=== PATIENT | female | born 1975 | race Two or more races ===

== ENCOUNTER 2022-07-13 10:13 | Emergency (ER) | payer MEDICAID ==
[~2022-07-13] VITALS: Ht 165.1 cm; Wt 63.5 kg
[2022-07-13] MEDS ORDERED: ONDANSETRON HCL/PF 4 MG/2 ML VIAL IVP ONE (10:30)
[2022-07-13] MEDS ORDERED: IV NS 0.9% 1,000 ML BAG IV ONE (10:30)
[2022-07-13] MEDS ORDERED: ONDANSETRON HCL/PF 4 MG/2 ML VIAL ONE (10:36)
--- NOTE | 2022-07-13 10:40 | NUR ---
Patient AOx4, able to express her concerns. C/o pain and "a couple" drops of blood with stool.
[2022-07-13 11:06] LABS: BASOPHILS % (AUTO) 0.9 % (0.0-2.0); EOSINOPHILS % (AUTO) 1.6 % (0.0-6.0); HEMATOCRIT 37 % (33-45); HEMOGLOBIN 12.4 g/dL (11.5-14.8); LYMPHOCYTES # (AUTO) 2.1 K/uL (0.8-4.8); LYMPHOCYTES % (AUTO) 39.4 % (20.0-44.0); MEAN CORPUSCULAR HGB CONC 34 g/dl (31.0-36.0); MEAN CORPUSCULAR VOLUME 89 fL (82-100); MONOCYTES # (AUTO) 0.4 K/uL (0.1-1.30); MONOCYTES % (AUTO) 6.9 % (2.0-12.0); NEUTROPHILS # (AUTO) 2.7 K/uL (1.8-8.9); NEUTROPHILS % (AUTO) 51.2 % (43.0-81.0); PLATELET COUNT (AUTO) 266 K/uL (150-450); RED BLOOD CELL COUNT(AUTO) 4.08 MIL/uL (4.0-5.2); WHITE BLOOD COUNT (AUTO) 5.3 K/uL (4.3-11.0)
[2022-07-13 11:25] LABS: CALCIUM, SERUM 8.8 mg/dL (8.5-10.1); CREATININE 0.6 mg/dL (0.6-1.3); POTASSIUM 3.7 mmol/L (3.5-5.1)
[2022-07-13 11:30] LABS: ALBUMIN 3.8 g/dL (3.4-5.0); BILIRUBIN,DIRECT 0.1 mg/dL (0.0-0.2); BILIRUBIN,TOTAL 0.5 mg/dL (0.2-1.0); TOTAL PROTEIN, SERUM 7.3 g/dL (6.4-8.2)
[2022-07-13 13:44] LABS: OCCULT BLOOD STOOL NEGATIVE (NEGATIVE)
[2022-07-13] MEDS ORDERED: HYDR30CR79 TP (13:57)
[2022-07-13] MEDS ORDERED: POLY17PO4 PO (13:57)
[2022-07-13 14:42] VITALS: BP 135/82
--- NOTE | 2022-07-13 14:42 | NUR ---
Patient discharged to home in stable condition, ambulating by self. Written and verbal after care instructions given. Patient verbalizes understanding of instruction.
== END 2022-07-13 14:47 | disposition home or self-care (01) ==
LOC: ER 10:19
DX: K64.4 Residual hemorrhoidal skin tags (principal); K62.5 Hemorrhage of anus and rectum; K62.89 Other specified diseases of anus and rectum; Z90.710 Acquired absence of both cervix and uterus; Z88.0 Allergy status to penicillin
CPT/HCPCS: 99285; 74176; 96374; 96361; 85025; 80048; 83690; 80076; 82272; 36415; 85730; 86850; J2405; J7030